=== PATIENT | male | born 1970 | race Caucasian/White ===

== ENCOUNTER 2019-05-20 07:51 | Emergency (ER) | payer SELFPAY ==
[2019-05-20] MEDS ORDERED: TETANUS & DIPHTHERIA TOX,ADULT 0.5 ML VIAL ONE (08:22)
[2019-05-20] MEDS ORDERED: CLINDAMYCIN HCL 150 MG CAP ONE (08:22)
--- NOTE | 2019-05-20 08:58 | ER ---
Nurse's Notes [facility] Name: Sp Thibodeaux Age: 49 yrs Sex: Male : 1970 Arrival Date: 05/20/2019 Time: 07:53 Bed 24 Private MD: None, None Diagnosis: Abrasion of right hand Presentation: 05/20 07:59 Presenting complaint: Patient states: i was working on my barn and used a eyeglass lens grinder when hj i accidentally hurt the top of my R hand; happened 20 mins ago;. Transition of care: patient was not received from another setting of care. Complicating Factors: There are no complicating factors for this patient. Onset of symptoms was May 20, 2019. Risk Assessment: Do you want to hurt yourself or someone else? Patient reports no desire to harm self or others. Initial Sepsis Screen: Does the patient meet any 2 criteria? No. Patient's initial sepsis screen is negative. Does the patient have a suspected source of infection? No. Patient's initial sepsis screen is negative. Care prior to arrival: None. 07:59 Method Of Arrival: Ambulatory 07:59 Acuity: KAILA 4 hj Triage Assessment: 08:02 General: Appears in no apparent distress. uncomfortable, Behavior is calm, cooperative, hj appropriate for age. Pain: Complains of pain in right hand. Injury Description: Laceration. Historical: - Allergies: 08:02 No Known Allergies; hj - Home Meds: 08:02 None [Active]; hj - PMHx: 08:02 None; hj - PSHx: 08:02 Knee surgery; hj - Immunization history:: Adult Immunizations up to date. - Social history:: Smoking status: Patient/guardian denies using tobacco, Patient/guardian denies using alcohol, Patient/guardian denies using street drugs, The patient lives with family. - Ebola Screening: : Patient negative for fever greater than or equal to 101.5 degrees Fahrenheit, and additional compatible Ebola Virus Disease symptoms Patient denies exposure to infectious person Patient denies travel to an Ebola-affected area in the 21 days before illness onset. - Family history:: not pertinent. Screenin:00 Abuse screen: Denies threats or abuse. Denies injuries from another. Nutritional hj screening: No deficits noted. Tuberculosis screening: No symptoms or risk factors identified. Fall Risk None identified. Assessment: 08:02 Musculoskeletal: No signs and/or symptoms reported regarding the musculoskeletal hj system. Injury Description: Laceration. 09:20 Injury Description: Abrasion. hj 09:20 Injury Description:. hj 09:20 General: Appears in no apparent distress. uncomfortable, Behavior is calm, cooperative, hj appropriate for age. Pain: Complains of pain in right hand. Neuro: Level of Consciousness is awake, Oriented to person, place, time, situation, Appropriate for age. Cardiovascular: Capillary refill < 3 seconds Patient's skin is warm and dry. Respiratory: Airway is patent Respiratory effort is even, unlabored, Respiratory pattern is regular, symmetrical. GI: No signs and/or symptoms were reported involving the gastrointestinal system. : No signs and/or symptoms were reported regarding the genitourinary system. EENT: No signs and/or symptoms were reported regarding the EENT system. Derm: Wound noted right hand Reports. Injury Description: Abrasion sustained to right hand is with sweeling was sustained 30-60 minutes ago. Vital Signs: 08:03 BP 117 / 73; Pulse 73; Resp 18; Temp 97.0(TE); Pulse Ox 98% on R/A; Weight 120.2 kg; hj Height 6 ft. 0 in. (182.88 cm); 08:03 Body Mass Index 35.94 (120.20 kg, 182.88 cm) ED Course: 07:53 Patient arrived in ED. mr 07:53 None, None is Private Physician. mr 07:55 Alexi Garcia MD is Attending Physician. ma2 07:59 Jonnie Mead RN is Primary Nurse. hj 08:00 Triage completed. hj 08:02 Arm band placed on right wrist. hj 08:03 Patient has correct armband on for positive identification. Bed in low position. Call light in reach. Side rails up X 1. 08:35 Hand Right 3 View XRAY In Process Unspecified. EDMS 09:19 No provider procedures requiring assistance completed. Patient did not have IV access hj during this emergency room visit. 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 Exp: 02/03/2021. Lot #: [id number]. } Route: IM; Site: right deltoid; 08:22 Follow up: Response: No adverse reaction 08:06 Drug: Clindamycin 300 mg Route: PO; 08:22 Follow up: Response: No adverse reaction Outcome: 08:57 Discharge ordered by . jim 09:19 Discharged to home ambulatory, with family. 09:19 Condition: stable 09:19 Discharge instructions given to patient, family, Instructed on discharge instructions, follow up and referral plans. medication usage, wound care, Demonstrated understanding of instructions, follow-up care, medications, wound care, Prescriptions given X 2. 09:21 Patient left the ED. Signatures: Dispatcher [employer] EDBeronica Gonzalez Henry, RN RN Alexi Wen MD MD ma2
--- NOTE | 2019-05-20 08:58 | EDPHYS ---
Physician Documentation [facility] Name: Sp Thibodeaux Age: 49 yrs Sex: Male : 1970 Arrival Date: 05/20/2019 Time: 07:53 Bed 24 Private MD: None, None ED Physician Alexi Garcia HPI: 05/20 08:05 This 49 yrs old Male presents to ER via Ambulatory with complaints of ma2 Laceration To Hand. 08:05 Onset: The symptoms/episode began/occurred suddenly, .5 hour(s) ago. Associated signs ma2 and symptoms: Pertinent negatives: deformity, heavy bleeding, numbness distal to injury, suspected foreign body. The patient has not experienced similar symptoms in the past. abrasion to the dorsal right hand superficial no laceration sustained while using facing grinder. Historical: - Allergies: 08:02 No Known Allergies; hj - Home Meds: 08:02 None [Active]; hj - PMHx: 08:02 None; hj - PSHx: 08:02 Knee surgery; hj - Immunization history:: Adult Immunizations up to date. - Social history:: Smoking status: Patient/guardian denies using tobacco, Patient/guardian denies using alcohol, Patient/guardian denies using street drugs, The patient lives with family. - Ebola Screening: : Patient negative for fever greater than or equal to 101.5 degrees Fahrenheit, and additional compatible Ebola Virus Disease symptoms Patient denies exposure to infectious person Patient denies travel to an Ebola-affected area in the 21 days before illness onset. - Family history:: not pertinent. ROS: 08:05 Constitutional: Negative for fever, chills, and weight loss. ma2 08:05 All other systems are negative. Exam: 08:05 Constitutional: This is a well developed, well nourished patient who is awake, alert, ma2 and in no acute distress. Head/Face: Normocephalic, atraumatic. Eyes: Pupils equal round and reactive to light, extra-ocular motions intact. Lids and lashes normal. Conjunctiva and sclera are non-icteric and not injected. Cornea within normal limits. Periorbital areas with no swelling, redness, or edema. ENT: Nares patent. No nasal discharge, no septal abnormalities noted. Tympanic membranes are normal and external auditory canals are clear. Oropharynx with no redness, swelling, or masses, exudates, or evidence of obstruction, uvula midline. Mucous membranes moist. Chest/axilla: Normal chest wall appearance and motion. Nontender with no deformity. No lesions are appreciated. Cardiovascular: Regular rate and rhythm with a normal S1 and S2. No gallops, murmurs, or rubs. Normal PMI, no JVD. No pulse deficits. Respiratory: Lungs have equal breath sounds bilaterally, clear to auscultation and percussion. No rales, rhonchi or wheezes noted. No increased work of breathing, no retractions or nasal flaring. MS/ Extremity: Pulses equal, no cyanosis. Neurovascular intact. Full, normal range of motion. Neuro: Awake and alert, GCS 15, oriented to person, place, time, and situation. Cranial nerves II-XII grossly intact. Motor strength 5/5 in all extremities. Sensory grossly intact. Cerebellar exam normal. Normal gait. 08:05 Skin: abrasion 1 cm to dorsal hand . Vital Signs: 08:03 BP 117 / 73; Pulse 73; Resp 18; Temp 97.0(TE); Pulse Ox 98% on R/A; Weight 120.2 kg; Height 6 ft. 0 in. (182.88 cm); 08:03 Body Mass Index 35.94 (120.20 kg, 182.88 cm) MDM: 07:55 Patient medically screened. [facility] 08:05 Differential diagnosis: superficial laceration, abrasion. Data reviewed: vital signs, pr2 nurses notes. Counseling: I had a detailed discussion with the patient and/or guardian regarding: the historical points, exam findings, and any diagnostic results supporting the discharge/admit diagnosis, the presence of at least one elevated blood pressure reading (>120/80) during this emergency department visit, the need for outpatient follow up. Response to treatment: the patient's symptoms have markedly improved after treatment. 05/20 08:05 Order name: Hand Right 3 View XRAY [facility] 05/20 08:05 Order name: Dressing - Wound; Complete Time: 08:33 ma2 Administered Medications: 08:06 Drug: Tetanus-Diphtheria Toxoid Adult 0.5 ml {Carrier Driver: [employer]. Exp: 02/03/2021. Lot #: [id number]. } Route: IM; Site: right deltoid; 08:22 Follow up: Response: No adverse reaction hj 08:06 Drug: Clindamycin 300 mg Route: PO; hj 08:22 Follow up: Response: No adverse reaction hj Disposition: 05/20/19 08:57 Discharged to Home. Impression: Abrasion of right hand. - Condition is Stable. - Discharge Instructions: Abrasion. - Prescriptions for Clindamycin HCl 300 mg Oral Capsule - take 1 capsule by ORAL route every 6 hours for 10 days; 40 capsule. Tylenol- Codeine #3 300-30 mg Oral Tablet - take 2 tablet by ORAL route every 6 hours As needed; 30 tablet. - Medication Reconciliation Form, Thank You Letter, Antibiotic Education, Prescription Opioid Use form. - Follow up: Private Physician; When: Tomorrow; Reason: Continuance of care. - Problem is new. - Symptoms have improved. Signatures: Dispatcher [employer] EDMS Jonnie Mead RN RN Alexi Garcia MD MD ma2 Corrections: (The following items were deleted from the chart) 09:21 08:57 05/20/2019 08:57 Discharged to Home. Impression: Abrasion of right hand. hj Condition is Stable. Discharge Instructions: Abrasion. Prescriptions for Clindamycin HCl 300 mg Oral Capsule - take 1 capsule by ORAL route every 6 hours for 10 days; 40 capsule, Tylenol-Codeine #3 300-30 mg Oral Tablet - take 2 tablet by ORAL route every 6 hours As needed; 30 tablet. and Forms are Medication Reconciliation Form, Thank You Letter, Antibiotic Education, Prescription Opioid Use. Follow up: Private Physician; When: Tomorrow; Reason: Continuance of care. Problem is new. Symptoms have improved. ma2
--- NOTE | 2019-05-20 09:05 | RAD REPORT ---
EXAM DESCRIPTION: RAD - Hand Right 3 View - 05/20/2019 8:38 am CLINICAL HISTORY: Laceration, soft tissue wound dorsum of the right hand between the third and fourt h metatarsals and MTP joints COMPARISON: None. FINDINGS: No fracture is identified. There is no dislocation or periosteal reaction noted. Soft tis emili swelling over the dorsum of the hand is present but no foreign body seen. IMPRESSION: No right hand bone or joint abnormality. Dorsal right hand soft tissue swelling/ hemorrh age with no foreign body.
== END 2019-05-20 09:21 | disposition home or self-care (01) ==
LOC: ER 07:51
DX: S60.511A Abrasion of right hand, initial encounter (principal); Z23 Encounter for immunization
CPT/HCPCS: 90471; 90714; 99283